=== PATIENT | female | born 1995 | race Two or more races ===

== ENCOUNTER 2021-12-20 14:37 | Emergency (ER) | payer OTHER ==
[~2021-12-20] VITALS: Ht 157.5 cm; Wt 59.0 kg
== END 2021-12-20 18:46 | disposition home or self-care (01) ==
LOC: ER 14:37
DX: S99.912A Unspecified injury of left ankle, initial encounter (principal); W18.39XA Other fall on same level, initial encounter; Y93.9 Activity, unspecified; Y92.488 Other paved roadways as the place of occurrence of the external cause; Y99.9 Unspecified external cause status

== ENCOUNTER → 2022-07-16 | Emergency (ER) | payer OTHER | END | disposition home or self-care (01) | LOC: ER 13:41 | DX: S99.912A Unspecified injury of left ankle, initial encounter (principal); W18.30XA Fall on same level, unspecified, initial encounter; Y93.9 Activity, unspecified; Y92.9 Unspecified place or not applicable; Y99.9 Unspecified external cause status ==